=== PATIENT | male | born 2000 | race African-American/Black ===

== ENCOUNTER 2019-04-18 00:22 | Emergency (ER) | payer OTHER ==
[~2019-04-18] VITALS: Ht 177.8 cm; Wt 68.0 kg
[2019-04-18 00:27] VITALS: BP 125/69
[2019-04-18] MEDS ORDERED: NACL 0.9% 1,000 ML IV ONE (00:35)
[2019-04-18] MEDS ORDERED: ONDANSETRON 4 MG/2 ML VIAL IVP ONE (00:35)
[2019-04-18 00:51] LABS: BASOPHILS % (AUTO) 0.3 % (0.0-2.0); EOSINOPHILS # (AUTO) 0.5 K/uL (0-0.4); EOSINOPHILS % (AUTO) 4.4 % (0.0-4.0); HEMATOCRIT 47.5 % (36-52); HEMOGLOBIN 15.8 g/dL (12.0-18.0); LYMPHOCYTES # (AUTO) 1.6 K/uL (2.0-11.5); LYMPHOCYTES % (AUTO) 12.8 % (20.5-51.1); MEAN CORPUSCULAR HEMOGLOBIN 29 pg (27-31); MEAN CORPUSCULAR HGB CONC 33 g/dL (33-37); MEAN CORPUSCULAR VOLUME 88.1 fL (80-94); MONOCYTES # (AUTO) 1.3 K/uL (0.8-1.0); MONOCYTES % (AUTO) 10.3 % (1.7-9.3); NEUTROPHILS # (AUTO) 8.9 K/uL (1.8-7.7); NEUTROPHILS % (AUTO) 72.2 % (42.2-75.2); PLATELET COUNT (AUTO) 284 K/uL (140-450); RED BLOOD CELL COUNT(AUTO) 5.39 MIL/uL (4.20-6.10); RED CELL DISTRIBUTION WIDTH 12.8 % (11.6-13.7); WHITE BLOOD COUNT (AUTO) 12.4 K/uL (4.5-11.0)
--- NOTE | 2019-04-18 01:00 | NUR ---
PT C/O STOMACH PAIN, NAUSEA, DIARRHEA X2 DAYS. 2 EPISODES OF VOMITING TODAY. PT HAS CRAMPING PAIN AND WATERY, BLOODY STOOL. 7/10 PAIN LEVEL. BOWEL SOUNDS ACTIVE, ABDOMEN SOFT, ROUND, AND NONTENDER. DENIES FEVER. ALLERGIC TO PENICILLIN. ERMD AT BEDSIDE. BED IN LOWEST POSITION. SIDE RAIL UP X1.
[2019-04-18 01:19] LABS: PROTHROMBIN TIME 10.1 secs (10.8-13.4)
[2019-04-18 01:24] LABS: ANION GAP 11.9 (8-16); CARBON DIOXIDE 31.4 mmol/L (21-32); CREATININE 1.1 mg/dL (0.7-1.3); POTASSIUM 4.3 mmol/L (3.5-5.1)
--- NOTE | 2019-04-18 01:28 | NUR ---
PT LEFT TO CT SCAN VIA WHEELCHAIR
[2019-04-18 01:30] LABS: ALBUMIN 4.4 g/dL (3.4-5.0); TOTAL BILIRUBIN 0.4 mg/dL (0.0-1.0)
--- NOTE | 2019-04-18 02:18 | NUR ---
PT STATES RELIEF OF NAUSEA. NO COMPLAINTS OF PAIN AT THIS TIME. PT RESTING IN BED. BED LOCKED IN LOWEST POSITION. VSS. WILL CONTINUE TO MONITOR.
--- NOTE | 2019-04-18 02:55 | NUR ---
Patient discharged with v/s stable. Written and verbal after care instructions given and explained. Patient alert, oriented and verbalized understanding of instructions. Ambulatory with steady gait. All questions addressed prior to discharge. ID band removed. Patient advised to follow up with PMD. Rx of Zofran and Motrin given. Patient educated on indication of medication including possible reaction and side effects. Opportunity to ask questions provided and answered. Pt received information on homeless shelters, D/C with homeless food packet upon request, homeless waiver signed by Pt. Accompanied by friend upon discharge.
[2019-04-18 02:58] VITALS: BP 125/69
== END 2019-04-18 02:55 | disposition home or self-care (01) ==
LOC: MED 00:22
DX: K52.9 Noninfective gastroenteritis and colitis, unspecified (principal); Z88.0 Allergy status to penicillin
CPT/HCPCS: 36415; 74176; 80053; 85025; 85610; 85730; 96361; 96374; 99284; J2405; J7030